=== PATIENT | female | born 1970 | race Caucasian/White ===

== ENCOUNTER → 2021-05-18 | Outpatient (CLI) | payer BC ==
[2021-05-18 13:37] LABS: HCG, SERUM QUALITATIVE NEGATIVE (NEGATIVE)
== END ==
LOC: M LAB 11:51
PROVIDERS: ATTEND Physician Assistant
DX: Z32.00 Encounter for pregnancy test, result unknown (principal)

== ENCOUNTER → 2021-08-10 | Outpatient (CLI) | payer BC ==
[2021-08-10 15:27] LABS: HCG, SERUM QUALITATIVE NEGATIVE (NEGATIVE)
== END ==
LOC: M LAB 13:23
PROVIDERS: ATTEND Physician Assistant
DX: Z32.02 Encounter for pregnancy test, result negative (principal)

== ENCOUNTER → 2023-08-31 | Outpatient (CLI) | payer BC | LOC: M RAD 11:07 | PROVIDERS: ATTEND Surgery Vascular Surgery | DX: I77.1 Stricture of artery (principal); I73.9 Peripheral vascular disease, unspecified ==

== ENCOUNTER → 2023-09-27 | Outpatient (CLI) | payer BC ==
[~2023-09-27] MED LIST: ISOVUE-370 76% 100ML VIAL As Ordered ONE
== END ==
LOC: M RAD 10:55
PROVIDERS: ATTEND Surgery Vascular Surgery
DX: I73.9 Peripheral vascular disease, unspecified (principal)
CPT/HCPCS: 75635; Q9967

== ENCOUNTER → 2024-05-15 | Outpatient (CLI) | payer BC ==
[2024-05-15 12:04] LABS: HEMATOCRIT 41.8 % (36.0-47.0); HEMOGLOBIN 13.7 g/dl (12.0-15.5); MEAN CORPUSCULAR HEMOGLOBIN 32.4 pg (27.0-33.0); MEAN CORPUSCULAR HGB CONC 32.8 g/dl (32.0-36.5); MEAN CORPUSCULAR VOLUME 98.8 fl (80.0-96.0); PLATELET COUNT, AUTOMATED 183 10^3/uL (150-450); RED BLOOD COUNT 4.23 10^6/uL (4.00-5.40); WHITE BLOOD COUNT 11.1 10^3/uL (4.0-10.0)
[2024-05-15 12:27] LABS: INR 1.1; PROTHROMBIN TIME 13.9 SECONDS (12.5-14.5)
[2024-05-15 12:32] LABS: BLOOD UREA NITROGEN 10 MG/DL (9-23); CALCIUM LEVEL 9.6 MG/DL (8.5-10.1); CARBON DIOXIDE LEVEL 26 MMOL/L (20-31); CHLORIDE LEVEL 110 MMOL/L (98-107); CREATININE FOR GFR 0.65 MG/DL (0.55-1.30); GLOMERULAR FILTRATION RATE > 60.0 (>51); GLUCOSE, FASTING 128 MG/DL (60-100); POTASSIUM SERUM 3.9 MMOL/L (3.5-5.1); SODIUM LEVEL 141 MMOL/L (136-145)
== END ==
LOC: M LAB 11:29
PROVIDERS: ATTEND Physician Assistant
DX: Z01.818 Encounter for other preprocedural examination (principal)

== ENCOUNTER → 2024-11-14 | Outpatient (CLI) | payer BC | LOC: M RAD 15:11 | PROVIDERS: ATTEND Surgery Vascular Surgery | DX: I73.9 Peripheral vascular disease, unspecified (principal) ==

== ENCOUNTER 2024-12-03 16:42 | Observation (INO) | payer BC ==
[~2024-12-03] VITALS: Ht 160 cm; Wt 64.7 kg
[2024-12-03] MEDS ORDERED: ASPI-226 (17:19)
[2024-12-03] MEDS ORDERED: LISI20TA33 (17:19)
[2024-12-03] MEDS ORDERED: ATOR40TA75 (17:19)
[2024-12-03] MEDS ORDERED: AMLO1TAB24 (17:19)
[2024-12-03] MEDS ORDERED: CARV6.25 (17:19)
[2024-12-03] MEDS ORDERED: ISOS1TAB36 (17:19)
[2024-12-03 19:42] LABS: HEMATOCRIT 35.3 % (36.0-47.0); HEMOGLOBIN 12.2 g/dl (12.0-15.5); MEAN CORPUSCULAR HEMOGLOBIN 31.6 pg (27.0-33.0); MEAN CORPUSCULAR HGB CONC 34.6 g/dl (32.0-36.5); MEAN CORPUSCULAR VOLUME 91.5 fl (80.0-96.0); PLATELET COUNT, AUTOMATED 177 10^3/uL (150-450); RED BLOOD COUNT 3.86 10^6/uL (4.00-5.40); WHITE BLOOD COUNT 7.4 10^3/uL (4.0-10.0)
[2024-12-03 20:05] LABS: KETONE, URINE AUTO RFX NEGATIVE (NEGATIVE); MUCUS, URINE RFX SMALL (NEGATIVE); NITRITE, URINE AUTO RFX NEGATIVE (NEGATIVE); RBC, URINE AUTO RFX 1 /HPF (0-3); SQUAM EPITHELIAL CELL UR AURFX 1 /HPF (0-6)
[2024-12-03 20:06] LABS: LEUKOCYTE ESTERASE UR AUTO RFX TRACE (NEGATIVE); WBC, URINE AUTO RFX 27 /HPF (0-3)
[2024-12-03 20:11] LABS: LIPASE 56 U/L (12-53)
[2024-12-03 20:14] LABS: ALKALINE PHOSPHATASE 96 U/L (35-104); ALT/SGPT 48 U/L (7.0-40); AMYLASE 91 U/L (30-118); AST/SGOT 49 U/L (<34); BILIRUBIN,DIRECT 0.2 MG/DL (<0.4); BILIRUBIN,TOTAL 0.5 MG/DL (0.3-1.2); BLOOD UREA NITROGEN 10 MG/DL (9-23); CALCIUM LEVEL 8.8 MG/DL (8.5-10.1); CARBON DIOXIDE LEVEL 25 MMOL/L (20-31); CHLORIDE LEVEL 104 MMOL/L (98-107); CREATININE FOR GFR 0.64 MG/DL (0.55-1.30); GLOMERULAR FILTRATION RATE > 60.0 (>51); GLUCOSE, FASTING 139 MG/DL (60-100); POTASSIUM SERUM 3.1 MMOL/L (3.5-5.1); SODIUM LEVEL 137 MMOL/L (136-145); TOTAL PROTEIN 6.5 G/DL (5.7-8.2)
[2024-12-03 20:19] LABS: ATYPICAL LYMPH 18 % (0-5); LYMPHOCYTES 12 % (16-44); MONOCYTES 7 % (0-5); NEUTROPHILS 62 % (28-66); PLATELET ESTIMATE NORMAL (NORMAL)
[2024-12-03 22:30] LABS: MAGNESIUM LEVEL 1.8 MG/DL (1.8-2.4)
[2024-12-03] MEDS: ONDANSETRON 4MG 2ML VIAL IV ONE (22:33)
[2024-12-03] MEDS: POTASSIUM CHLORIDE 10% LIQ 20MEQ/15ML UDC PO ONE (22:33)
[2024-12-03 22:38] LABS: CK-MB VALUE MASS < 1.0 NG/ML (<3.6)
[2024-12-03 22:39] LABS: CPK CREATINE PHOSPHOKINASE 288 U/L (34-145); MB/CK RELATIVE INDEX 0.34 (< OR =4)
[2024-12-03 23:01] VITALS: TEMP 99
[2024-12-03] MEDS: ACETAMINOPHEN *IV* 1,000 MG in IV 1 EA IV ONE (23:12)
[2024-12-03] MEDS: MAG SULF 1GM/100ML (MAG RUN) 1 GM in IV 1 EA IV ONE (23:12)
[2024-12-03] MEDS: KETOROLAC 30 MG/ML 1ML VIAL IV ONE (23:13)
[2024-12-03 23:33] VITALS: O2SAT 86
[2024-12-03] MEDS: OSELTAMIVIR PHOSPHATE 75 MG CAP PO ONE (23:41)
[2024-12-04] MEDS ORDERED: ISOVUE-370 76% 100ML VIAL As Ordered ONE (00:47)
[2024-12-04] MEDS ORDERED: LEVALBUTEROL 1.25MG 0.5ML CONCENTRATE NEB INH PRN (02:00)
[2024-12-04] MEDS ORDERED: NICOTINE 14 MG/24 HR TRANSDERMAL TD PRN (02:00)
[2024-12-04] MEDS ORDERED: DEXTROMETHORPHAN 60MG/10ML SUSP 90ML BTL(DELSYM) PO PRN (03:00)
[2024-12-04] MEDS: cefTRIAXone SOD 1 GM in DEXTROSE 5% (D5W) ADV/MINI-BAG 50 ML IV ONE (03:08)
[2024-12-04] MEDS: AZITHROMYCIN 250MG TABLET PO ONE (03:08)
[2024-12-04 03:21] LABS: PROCALCITONIN 0.15 ng/ml
[2024-12-04] MEDS: IPRATROPIUM 0.5MG/ALBUTEROL 2.5MG INH SOL UD 3ML (DUONEB) INH SCH (03:22)
[2024-12-04 04:00] VITALS: BP 152/74; O2SAT 93
[2024-12-04] MEDS ORDERED: OSELTAMIVIR PHOSPHATE 75 MG CAP PO SCH (09:00)
[2024-12-04] MEDS ORDERED: PANTOPRAZOLE 40MG TAB (PROTONIX) PO SCH (09:00)
[2024-12-04] MEDS ORDERED: predniSONE 20 MG TAB PO SCH (09:00)
[2024-12-05] MEDS ORDERED: cefTRIAXone SOD 2 GM in DEXTROSE 5% (D5W) ADV/MINI-BAG 50 ML IV SCH (03:00)
[2024-12-05] MEDS ORDERED: AZITHROMYCIN INJ 500 MG, VIAL MATE ADAPTER 1 EACH in D5W 250 ML IV SCH (06:00)
[2024-12-05] MEDS ORDERED: AZITHROMYCIN 250MG TABLET PO SCH (09:00)
== END 2024-12-04 04:21 | disposition home or self-care (01) ==
LOC: M ED 16:42 → M ED INP 12-04 01:58 → INTOOBSV 12-04 01:58
PROVIDERS: ADMIT Family Medicine; ATTEND Family Medicine
DX: J10.1 Influenza due to other identified influenza virus with other respiratory manifestations (principal); J96.01 Acute respiratory failure with hypoxia; J18.9 Pneumonia, unspecified organism; I25.10 Atherosclerotic heart disease of native coronary artery without angina pectoris; I10 Essential (primary) hypertension; E78.5 Hyperlipidemia, unspecified; I73.9 Peripheral vascular disease, unspecified; I25.2 Old myocardial infarction; Z95.5 Presence of coronary angioplasty implant and graft; Z95.828 Presence of other vascular implants and grafts; F17.210 Nicotine dependence, cigarettes, uncomplicated; Z82.49 Family history of ischemic heart disease and other diseases of the circulatory system; Z79.899 Other long term (current) drug therapy; Z79.82 Long term (current) use of aspirin
CPT/HCPCS: 71046; 71275; 80048; 80076; 81001; 82150; 82550; 82553; 83690; 83735; 84145; 84484; 85025; 87040; 87088; 87186; 87486; 87581; 87633; 87798; 93005; 94640; 96365; 96367; 96375; 99284; J0131; J0696; J1885; J2405; J3475; Q9967

== ENCOUNTER → 2025-05-15 | Outpatient (CLI) | payer OTHER ==
[~2025-05-15] MED LIST changes: +AMLO1TAB24; +ASPI-226; +ATOR40TA75; +CARV6.25; +ISOS1TAB36; -ISOVUE-370 76% 100ML VIAL As Ordered ONE; +LISI20TA33
== END ==
LOC: M RAD 11:02
PROVIDERS: ATTEND Physician Assistant
DX: I73.9 Peripheral vascular disease, unspecified (principal)

== ENCOUNTER → 2025-06-26 | Outpatient (CLI) | payer OTHER ==
[~2025-06-26] MED LIST changes: +ISOVUE-370 76% 100 ML VIAL As Ordered ONE
== END ==
LOC: M RAD 13:43
PROVIDERS: ATTEND Surgery Vascular Surgery
DX: I73.9 Peripheral vascular disease, unspecified (principal)
CPT/HCPCS: 75635; Q9967